=== PATIENT | female | born 1990 | race American Indian/Alaskan Native ===

== ENCOUNTER 2016-11-10 20:54 | Inpatient (IN) | payer OTHER ==
[2016-11-10] MEDS: Lactated Ringers 1,000 ML IV SCH (22:10)
[2016-11-10] MEDS ORDERED: fentaNYL 100 MCG/2 ML SDV ONE (22:26)
[2016-11-10] MEDS ORDERED: Morphine PF 5 MG/10 ML SDV ONE (22:29)
[2016-11-10] MEDS ORDERED: Glycopyrrolate 0.2 MG/ML 2 ML SDV ONE (22:29)
[2016-11-10] MEDS ORDERED: Succinylcholine 200 MG/10 ML MDV ONE (22:30)
[2016-11-10] MEDS ORDERED: Propofol 200 MG/20 ML SDV ONE (22:30)
[2016-11-10] MEDS ORDERED: Citric Acid/Sodium Citrate Solution 30 ML Cup ONE (22:30)
[2016-11-10] MEDS ORDERED: Oxytocin/Normal Saline 60 UNIT/1,000 ML BAG ONE (22:32)
[2016-11-10] MEDS ORDERED: Phenylephrine 1% 10 MG/ML SDV ONE ×2 (22:33→22:34)
[2016-11-10] MEDS ORDERED: Sodium Chloride 0.9% 10 ML Syringe FLUSH PRN (22:34)
[2016-11-10] MEDS ORDERED: ceFAZolin 2 GM in Premix Bag 1 BAG IV ONE (22:34)
--- NOTE | 2016-11-10 22:43 | PCM.LDHP ---
L&D History of Present Illness - General Date of Service: 11/10/16 Admit Problem/Dx: Patient Status Order with Admit Dx/Problem 11/10/16 22:34 Patient Status [ADT] Routine Admission Diagnosis/Problem Admission Diagnosis/Problem care Source of Information: Patient - History of Present Illness Introduction:: 26-year-old at 38w6d gestation presented to the OB floor. Shortly after shopping at [employer], she went to the bathroom and noticed blood and mucus in the toilet. She became worried so presented to the OB floor. Amnisure was negative , and patient is not tania; however, she has had intermittent blood pressures with systolics in the 140s and diastolic in the 90s. As she is 39 weeks tomorrow and has a history of eclampsia, the decision was made to proceed with section. Baby has been active. No headaches. - Related Data Allergies/Adverse Reactions: Allergies Allergy/AdvReac Type Severity Reaction Status Date / Time No Known Allergies Allergy Verified 11/10/16 21:18 Home Medications: Home Meds PNV95/Ferrous Fumarate/FA [ Vitamin Tablet] 1 tab PO DAILY 11/10/16 [ History] Past Medical History Cardiovascular History: Reports: Other (see below) Other Cardiovascular History: elevated blood pressures/eclampsia with first CIVIL DESIGNER History: Reports: , Other (see below) Other OB/BYN History: BV, chlamydia Neurological History: Reports: Seizure, Other (see below) Other Neuro History: eclampsia with first Endocrine/Metabolic History: Reports: Diabetes, gestational, Obesity/BMI 30+ Hematologic History: Reports: Blood transfusion(s) - Past Surgical History Female Surgical History: Reports: section H&P Review of Systems - Review of Systems: Review Of Systems: See Below General: Reports: no symptoms HEENT: Reports: no symptoms Pulmonary: Reports: No Symptoms Cardiovascular: Reports: no symptoms, blood pressure problem Gastrointestinal: Reports: No symptoms Genitourinary: Reports: no symptoms Musculoskeletal: Reports: no symptoms Skin: Reports: no symptoms L&D Exam - Exam Exam: See Below - OB Specific movement: active heart tones: present heart tones per min: 140 Heart Rate (FHR) Variability: Moderate (6-25 bmp) Presentation: Vertex - Exam General: alert, oriented HEENT: Mucosa moist & pink, Posterior pharynx clear Lungs: Clear to auscultation, Normal respiratory effort Cardiovascular: regular rate, regular rhythm. No: systolic murmur, diastolic murmur Extremities: No: edema Skin: warm, dry, intact Psychiatric: alert - Patient Data Lab Results last 24 hrs: Laboratory Results - last 24 hr 11/10/16 11/10/16 Range/Units 21:25 22:09 POC Glucose 121 H (70-105) mg/dl Membrane Rupture Negative (NEG) - Problem List (1) History of delivery SNOMED Code(s): 462011562 ICD Code: Z98.891 - HISTORY OF UTERINE SCAR FROM PREVIOUS SURGERY Status: Acute Current Visit: Yes (2) Rubella non-immune status, antepartum SNOMED Code(s): 089512049 ICD Code: O99.89 - OTH DISEASES AND CONDITIONS COMPL PREG/CHLDBRTH; Z28.3 - UNDERIMMUNIZATION STATUS Status: Acute Current Visit: Yes (3) GBS (group B Streptococcus carrier), +RV culture, currently SNOMED Code(s): 16911273, 845033897 ICD Code: O99.820 - STREPTOCOCCUS B CARRIER STATE COMPLICATING Status: Acute Current Visit: Yes (4) Gestational diabetes mellitus SNOMED Code(s): 48479957 ICD Code: O24.419 - GESTATIONAL DIABETES MELLITUS IN , UNSP CONTROL Status: Acute Current Visit: Yes Problem List Initiated/Reviewed/Updated: Yes Orders Last 24hrs: Active Orders 24 hr Category Date Time Status Patient Status [ADT] Routine ADT 11/10/16 22:34 Ordered Notify Provider Vital Signs OB [RC] ASDIRECTED Care 11/10/16 22:34 Ordered Peripheral IV Care [RC] . DIRECTED Care 11/10/16 22:35 Ordered Procedure Site Prep Instruct [RC] ASDIRECTED Care 11/10/16 22:34 Ordered RT Incentive Spirometry [RC] ASDIRECTED Care 11/10/16 22:34 Ordered Vital Signs [RC] PER UNIT ROUTINE Care 11/10/16 22:34 Ordered CBC WITH AUTO DIFF [HEME] Routine Lab 11/10/16 22:34 Ordered TYPE AND SCREEN [BBK] Routine Lab 11/10/16 22:34 Ordered Sodium Chloride 0.9% [Saline Flush] Med 11/10/16 22:34 Ordered 10 ml FLUSH ASDIRECTED PRN ceFAZolin [Ancef] 2 gm Med 11/10/16 22:34 Ordered Premix Bag 1 bag IV ONETIME Peripheral IV Insertion Adult [OM.PC] Routine Oth 11/10/16 22:34 Ordered Schedule Procedure [COMM] Per Unit Routine Oth 11/10/16 22:34 Ordered Resuscitation Status Routine Resus Stat 11/10/16 22:34 Ordered Medication Orders Cefazolin Sodium/Dextrose 2 gm (/ Premix) 50 mls @ 100 mls/hr IV ONETIME ONE Stop: 11/10/16 23:03 Sodium Chloride (Saline Flush) 10 ml FLUSH ASDIRECTED PRN PRN Reason: Keep Vein Open Assessment/Plan Comment:: 1. Proceed with delivery 2. 2 grams Ancef 3. Plans to breastfeed 4. Risks and benefits, including but not limited to bleeding, infection and injury to surrounding structures. Consents were signed. Nimisha Chavira MD
[2016-11-11] MEDS ORDERED: Oxytocin/Normal Saline 30 UNIT/500 ML BAG IV SCH (00:19)
[2016-11-11] MEDS ORDERED: Simethicone 80 MG Tab.Chew PO PRN (00:40)
[2016-11-11] MEDS ORDERED: Acetaminophen/oxyCODONE 325-5 MG Tab PO PRN (00:40)
[2016-11-11] MEDS ORDERED: Ondansetron 4 MG/2 ML SDV IV PRN (00:40)
[2016-11-11] MEDS ORDERED: Naloxone 2 MG/2 ML Syringe IVPUSH PRN (00:40)
[2016-11-11] MEDS ORDERED: Acetaminophen 325 MG Tab PO PRN (00:40)
[2016-11-11] MEDS ORDERED: Misoprostol 400 MCG (4 X 100 MCG TAB) RECTAL PRN (00:40)
[2016-11-11] MEDS ORDERED: Carboprost Tromethamine 250 MCG/1 ML Amp IM ONE (00:40)
[2016-11-11] MEDS ORDERED: ePHEDrine 50 MG/ML SDV IVPUSH PRN (00:40)
[2016-11-11] MEDS ORDERED: Methylergonovine 0.2 MG/1 ML Amp IM PRN (00:40)
[2016-11-11] MEDS ORDERED: diphenhydrAMINE 50 MG/ML SDV IVPUSH PRN (00:40)
--- NOTE | 2016-11-11 00:40 | PCM.PRNOTE ---
- Free Text/Narrative Note: Section Operative Report Date of Surgery: 11/10/16 Surgeon: Nimisha Chavira MD Heat Treater: MD Dudley Robles [facility] Pre-Operative Diagnosis: Gestational HTN History previous section Post-Operative Diagnosis: Same Procedure Performed: Repeat low transverse section Anesthesia: General EBL: 600 mL IVF: 2300 mL Drains: Solano catheter with 300 mL of urine output Specimens: NONE Complications: None apparent Findings: Normal uterus, tubes, and ovaries. Indication and Consent: Patient presented with concern for ruptured membranes. Admission was negative; however, patient was found to have elevated blood pressures with systolic ranging in the 140s and diastolic in the high 80s to low 90s. Patient has a history of eclamptic seizure with her first . Because of her current blood pressures and history, the decision was made to proceed with repeat section at 38 weeks 6 days gestation. The patient understood that the risks of section include, but are not limited to, visceral or vascular injury, infection, blood loss and need for blood transfusion, prolonged hospitalization, and reoperation. The patient stated understanding and desired to proceed. All questions were answered. Procedure in Detail: The patient was taken to the operating room. Solano catheter and pneumoboots were placed. She was then prepped and draped in routine fashion in dorsal supine position with a left matamoros tilt. Two grams of cefazolin (Ancef) were given for infection prophylaxis. General anesthesia was administered. A Pfannenstiel skin incision was made with a scalpel and carried down to the fascia. The fascia was incised and extended laterally. The rectus musculature was in the midline down to the level of the pubic symphysis. The peritoneum was found to be free of adherent bowel or bladder tissue and entered bluntly. The peritoneal opening was then extended superiorly and inferiorly to the bladder reflection with good visualization of the bladder. The Mal retractor was placed. Brief intraabdominal survey revealed scant, clear peritoneal fluid and thinned-out lower uterine segment. The bladder blade was positioned to keep the bladder out of the operative field. The lower uterine segment was incised with a scalpel. The amniotic sac was ruptured with an Allis clamp and clear fluid was noted. The uterine incision was extended bluntly with lateral and upward traction. The fetus was in vert position. The head was elevated out of the maternal pelvis with special attention paid to avoid using the uterine incision as a fulcrum. Gentle fundal pressure was applied once the head was brought into the incision. The infant was delivered with minimal difficulty. Bulb suctioning of the 's nose and mouth was performed on the operative field. The cord was clamped and cut in standard fashion, and the infant was handed over to the awaiting nursery staff. IV oxytocin was initiated to facilitate uterine contractions. The placenta was delivered intact with manual message of the uterine fundus along with gentle cord traction. The uterus was then exteriorized. The inside of the uterus was gently wiped with a lap sponge to assure complete removal of remaining products of conception. The uterine incision was closed with 0 - Vicryl suture in a running locked fashion. A second imbricating layer of 0- Vicryl was also placed. The incision was inspected and hemostasis achieved. The ovaries and tubes were visualized and found to be normal. The uterus, tubes, and ovaries were returned to the abdominal cavity. The blood clots and fluid were wiped out of the abdomen and pelvis with moist laparotomy sponges. The uterine incision was re-inspected along with all other incised surfaces and good hemostasis was confirmed. The Mal retractor was removed. The peritoneus was then closed using 2-0 Vicyrl. The fascia was then closed with 2-0 looped PDS suture with care not to include any underlying abdominal contents. The sub-cutaneous layer was reapproximated with plain suture. The skin was closed with scott. Dressing was applied. Sponge and instrument counts were reported as correct times two. Pt tolerated procedure well and was taken to PACU in stable condition. Nimisha Chavira MD
--- NOTE | 2016-11-11 00:40 | PCM.DEL ---
L & D Note - General Info Date of Service: 11/18/16 - Delivery Note Delivery Outcome: Livebirth Infant Delivery Method: Repeat Delivery Mode: Vacuum Extraction Presentation: Vertex Amniotic Fluid Description: Clear Placenta: intact, spontaneous [place]: stimulated, warmed Delivery Comments (Free Text/Narrative):: 26-year-old presented to labor and delivery and was found to have elevated blood pressures. She underwent repeat section. Please see operative report for further details. Nimisha Chavira MD - General Info Date of Service: 11/10/16 - Patient Data Lab Results last 24 hrs: Laboratory Results - last 24 hr 11/10/16 11/10/16 11/10/16 Range/Units 21:25 22:09 22:12 WBC 6.1 (5.0-10.0) 10^3/uL RBC 5.92 H (4.2-5.4) 10^6/uL Hgb 15.4 (12.0-16.0) g/dL Hct 47.2 H (37.0-47.0) % MCV 79.7 L (80-100) fL MCH 26.0 L (27.0-34.0) pg MCHC 32.6 L (33.0-35.0) g/dL Plt Count 177 (150-450) 10^3/uL Neut % (Auto) 68.6 (42.2-75.2) % Lymph % (Auto) 25.3 (20.5-50.1) % Banks % (Auto) 5.4 (2-8) % Eos % (Auto) 0.5 L (1.0-3.0) % Baso % (Auto) 0.2 (0.0-1.0) % POC Glucose 121 H (70-105) mg/dl Membrane Rupture Negative (NEG) Blood Type Gel Antibody Screen 11/10/16 Range/Units 22:12 WBC (5.0-10.0) 10^3/uL RBC (4.2-5.4) 10^6/uL Hgb (12.0-16.0) g/dL Hct (37.0-47.0) % MCV (80-100) fL MCH (27.0-34.0) pg MCHC (33.0-35.0) g/dL Plt Count (150-450) 10^3/uL Neut % (Auto) (42.2-75.2) % Lymph % (Auto) (20.5-50.1) % Banks % (Auto) (2-8) % Eos % (Auto) (1.0-3.0) % Baso % (Auto) (0.0-1.0) % POC Glucose (70-105) mg/dl Membrane Rupture (NEG) Blood Type A POSITIVE Gel Antibody Screen Negative Med Orders - Current: Current Medications Sodium Chloride (Saline Flush) 10 ml FLUSH ASDIRECTED PRN PRN Reason: Keep Vein Open Discontinued Medications Citric Acid/Sodium Citrate (Bicitra Solution) Confirm Administered Dose 30 ml .ROUTE .STK-MED ONE Stop: 11/10/16 22:31 Fentanyl (Sublimaze) Confirm Administered Dose 100 mcg .ROUTE .STK-MED ONE Stop: 11/10/16 22:27 Glycopyrrolate (Glycopyrrolate) Confirm Administered Dose 0.8 mg .ROUTE .STK- MED ONE Stop: 11/10/16 22:30 Oxytocin/Sodium Chloride (Pitocin In Ns 30 Unit/500 Ml) Confirm Administered Dose 60 unit in 1,000 mls @ as directed .ROUTE .STK-MED ONE Stop: 11/10/16 22:33 Cefazolin Sodium/Dextrose 2 gm (/ Premix) 50 mls @ 100 mls/hr IV ONETIME ONE Stop: 11/10/16 23:03 Last Admin: 11/10/16 22:56 Dose: 100 mls/hr Morphine Sulfate (Duramorph Pf) Confirm Administered Dose 5 mg .ROUTE .STK-MED ONE Stop: 11/10/16 22:30 Phenylephrine HCl (Jericho-Synephrine) Confirm Administered Dose 10 mg .ROUTE .STK- MED ONE Stop: 11/10/16 22:34 Phenylephrine HCl (Jericho-Synephrine) Confirm Administered Dose 10 mg .ROUTE .STK- MED ONE Stop: 11/10/16 22:35 Propofol (Diprivan 20 Ml) Confirm Administered Dose 200 mg .ROUTE .STK-MED ONE Stop: 11/10/16 22:31 Succinylcholine Chloride (Quelicin) Confirm Administered Dose 200 mg .ROUTE .STK -MED ONE Stop: 11/10/16 22:31 - Problem List & Annotations (1) History of delivery SNOMED Code(s): 610241274 Code(s): Z98.891 - HISTORY OF UTERINE SCAR FROM PREVIOUS SURGERY Status: Acute Current Visit: Yes (2) Rubella non-immune status, antepartum SNOMED Code(s): 966881749 Code(s): O99.89 - OTH DISEASES AND CONDITIONS COMPL PREG/CHLDBRTH; Z28.3 - UNDERIMMUNIZATION STATUS Status: Acute Current Visit: Yes (3) GBS (group B Streptococcus carrier), +RV culture, currently SNOMED Code(s): 97500597, 376323017 Code(s): O99.820 - STREPTOCOCCUS B CARRIER STATE COMPLICATING Status: Acute Current Visit: Yes (4) Gestational diabetes mellitus SNOMED Code(s): 22275223 Code(s): O24.419 - GESTATIONAL DIABETES MELLITUS IN , UNSP CONTROL Status: Acute Current Visit: Yes - Problem List Review Problem List Initiated/Reviewed/Updated: Yes - My Orders Last 24 Hours: My Active Orders 11/10/16 22:34 Patient Status [ADT] Routine Notify Provider Vital Signs OB [RC] ASDIRECTED Procedure Site Prep Instruct [RC] ASDIRECTED RT Incentive Spirometry [RC] ASDIRECTED Vital Signs [RC] PER UNIT ROUTINE Sodium Chloride 0.9% [Saline Flush] 10 ml FLUSH ASDIRECTED PRN Peripheral IV Insertion Adult [OM.PC] Routine Schedule Procedure [COMM] Per Unit Routine Resuscitation Status Routine 11/10/16 22:35 Peripheral IV Care [RC] . DIRECTED - Assessment Assessment:: 26-year-old, now , status post repeat section at 37 weeks 6 days for gestational hypertension - Plan Plan:: 1. Initiate routine orders 2. Mother plans to breast-feed. 3. Anticipate discharge 11/13/16 Nimisha Chavira MD
[2016-11-11] MEDS ORDERED: Lactated Ringers 1,000 ML IV SCH (00:45)
[2016-11-11] MEDS ORDERED: Ketorolac 30 MG/ML SDV IVPUSH SCH ×2 (01:00→07:00)
[2016-11-11] MEDS: Lactated Ringers 1,000 ML IV SCH ×3 (02:46→10:43)
[2016-11-11] MEDS: Ketorolac 30 MG/ML SDV IVPUSH SCH ×2 (07:11→13:04)
[2016-11-11] MEDS: Docusate Sodium 100 MG Cap PO PRN ×2 (10:14→22:10)
[2016-11-11] MEDS ORDERED: Morphine PF 5 MG/10 ML SDV ONE (14:00)
[2016-11-11] MEDS ORDERED: Ketorolac 30 MG/ML SDV IVPUSH ONE (14:00)
[2016-11-11] MEDS ORDERED: fentaNYL 100 MCG/2 ML SDV ONE (14:00)
[2016-11-11] MEDS ORDERED: Ondansetron 4 MG/2 ML SDV IV ONE (14:00)
[2016-11-11] MEDS ORDERED: Oxytocin/Normal Saline 30 UNIT/500 ML BAG IV ONE (16:25)
[2016-11-11] MEDS: Ibuprofen 800 MG Tab PO PRN (21:08)
[2016-11-11] MEDS: Acetaminophen/oxyCODONE 325-5 MG Tab PO PRN (22:11)
[2016-11-11] MEDS ORDERED: Ibuprofen 800 MG Tab PO PRN (23:00)
[2016-11-12] MEDS ORDERED: Ibuprofen 800 MG Tab PO PRN (03:00)
[2016-11-12] MEDS: Acetaminophen/oxyCODONE 325-5 MG Tab PO PRN ×2 (04:15→10:15)
--- NOTE | 2016-11-12 07:31 | PCM.PNPP ---
- General Info Date of Service: 11/12/16 (POD # 1 S/P Repeat section) Functional Status: Reports: pain controlled, tolerating diet, ambulating, urinating - Review of Systems General: Reports: No Symptoms HEENT: Reports: no symptoms Pulmonary: Reports: no symptoms Cardiovascular: Reports: No Symptoms Gastrointestinal: Reports: No symptoms Genitourinary: Reports: no symptoms Musculoskeletal: Reports: no symptoms Skin: Reports: no symptoms Neurological: Reports: No Symptoms Psychiatric: Reports: no symptoms - General Info Date of Service: 11/12/16 (POD # 1 S/P Section) - Patient Data Vital Signs - most recent: Last Vital Signs Temp 97.2 F 11/12/16 00:00 Pulse 73 11/12/16 04:00 Resp 20 11/12/16 04:00 BP 122/72 11/12/16 04:00 Pulse Ox 95 11/12/16 04:00 Weight - most recent: 278 lb I&O - last 24 hours: Intake & Output 11/11/16 11/12/16 11/12/16 22:59 06:59 14:59 Intake Total 2000 450 Output Total 500 2500 Balance 1500 -2050 Lab Results - last 24 hrs: Laboratory Results - last 24 hr 11/12/16 Range/Units 07:10 WBC 9.3 (5.0-10.0) 10^3/uL RBC 3.79 L (4.2-5.4) 10^6/uL Hgb 9.9 L (12.0-16.0) g/dL Hct 31.6 L (37.0-47.0) % MCV 83.4 (80-100) fL MCH 26.1 L (27.0-34.0) pg MCHC 31.3 L (33.0-35.0) g/dL Plt Count 249 (150-450) 10^3/uL Med Orders - Current: Current Medications Acetaminophen (Tylenol) 650 mg PO Q6H PRN PRN Reason: mild pain or fever Diphenhydramine HCl (Benadryl) 25 mg IVPUSH Q6H PRN PRN Reason: Itching or Nausea Docusate Sodium (Colace) 100 mg PO Q12H PRN PRN Reason: Constipation Last Admin: 11/11/16 22:10 Dose: 100 mg Ephedrine Sulfate (Ephedrine Sulfate) 5 mg IVPUSH SEECOMMENT PRN PRN Reason: Other Lactated Ringer's (Ringers, Lactated) 1,000 mls @ 125 mls/hr IV ASDIRECTED [facility] Last Admin: 11/11/16 10:43 Dose: 125 mls/hr Oxytocin/Sodium Chloride (Pitocin In Ns 30 Unit/500 Ml) 30 unit in 500 mls @ 125 mls/hr IV TITRATE COURTNEY; 125 MUNITS/MIN PRN Reason: Protocol Last Titration: 11/11/16 02:50 Dose: 0 munits/min, 0 mls/hr Lactated Ringer's (Ringers, Lactated) 1,000 mls @ 125 mls/hr IV ASDIRECTED [facility] Last Admin: 11/11/16 02:46 Dose: 125 mls/hr Ibuprofen (Motrin) 800 mg PO Q8H PRN PRN Reason: mild pain or fever Last Admin: 11/11/16 21:08 Dose: 800 mg Methylergonovine Maleate (Methergine) 0.2 mg IM ONETIME PRN PRN Reason: Excessive Vaginal Bleeding Misoprostol (Cytotec) 800 mcg RECTAL ASDIRECTED PRN PRN Reason: Bleeding Naloxone HCl (Narcan) 0.1 mg IVPUSH SEECOMMENT PRN PRN Reason: Respiratory Depression Ondansetron HCl (Zofran) 4 mg IV Q4H PRN PRN Reason: Nausea/Vomiting Oxycodone/Acetaminophen (Percocet 325-5 Mg) 1 tab PO Q4H PRN PRN Reason: Pain (moderate 4-6) Last Admin: 11/12/16 04:15 Dose: 1 tab Oxycodone/Acetaminophen (Percocet 325-5 Mg) 2 tab PO Q4H PRN PRN Reason: Pain (moderate 4-6) Simethicone (Simethicone) 80 mg PO Q4H PRN PRN Reason: Gas Last Admin: 11/11/16 10:13 Dose: 80 mg Sodium Chloride (Saline Flush) 10 ml FLUSH ASDIRECTED PRN PRN Reason: Keep Vein Open Discontinued Medications Carboprost Tromethamine (Hemabate Ds) 250 mcg IM ONETIME ONE Stop: 11/11/16 00:41 Last Admin: 11/11/16 06:36 Dose: Not Given Citric Acid/Sodium Citrate (Bicitra Solution) Confirm Administered Dose 30 ml .ROUTE .STK-MED ONE Stop: 11/10/16 22:31 Last Admin: 11/10/16 22:59 Dose: 30 ml Fentanyl (Sublimaze) Confirm Administered Dose 100 mcg .ROUTE .STK-MED ONE Stop: 11/10/16 22:27 Fentanyl (Sublimaze) 10 mcg .XX .STK-MED ONE Stop: 11/11/16 14:01 Glycopyrrolate (Glycopyrrolate) Confirm Administered Dose 0.8 mg .ROUTE .STK- MED ONE Stop: 11/10/16 22:30 Oxytocin/Sodium Chloride (Pitocin In Ns 30 Unit/500 Ml) Confirm Administered Dose 60 unit in 1,000 mls @ as directed .ROUTE .STK-MED ONE Stop: 11/10/16 22:33 Cefazolin Sodium/Dextrose 2 gm (/ Premix) 50 mls @ 100 mls/hr IV ONETIME ONE Stop: 11/10/16 23:03 Last Admin: 11/10/16 22:56 Dose: 100 mls/hr Lactated Ringer's (Ringers, Lactated) 1,000 mls @ 125 mls/hr IV ASDIRECTED [facility] Last Admin: 11/11/16 01:04 Dose: 150 mls/hr Oxytocin/Sodium Chloride (Pitocin In Ns 30 Unit/500 Ml) 30 unit in 500 mls @ as directed IV .STK-MED ONE Stop: 11/11/16 16:26 Ibuprofen (Motrin) 800 mg PO Q8H PRN PRN Reason: mild pain or fever Ibuprofen (Motrin) 800 mg PO Q8H PRN PRN Reason: mild pain or fever Ketorolac Tromethamine (Toradol) 15 mg IVPUSH Q6H [facility] Stop: 11/11/16 13:01 Last Admin: 11/11/16 07:55 Dose: Not Given Ketorolac Tromethamine (Toradol) 15 mg IVPUSH Q6H [facility] Stop: 11/11/16 13:01 Ketorolac Tromethamine (Toradol) 15 mg IVPUSH Q6H [facility] Stop: 11/11/16 19:01 Last Admin: 11/11/16 13:04 Dose: 15 mg Ketorolac Tromethamine (Toradol) 30 mg IVPUSH .STK-MED ONE Stop: 11/11/16 14:01 Morphine Sulfate (Duramorph Pf) Confirm Administered Dose 5 mg .ROUTE .STK-MED ONE Stop: 11/10/16 22:30 Morphine Sulfate (Duramorph Pf) 0.1 mg .XX .STK-MED ONE Stop: 11/11/16 14:01 Ondansetron HCl (Zofran) 4 mg IV .STK-MED ONE Stop: 11/11/16 14:01 Phenylephrine HCl (Jericho-Synephrine) Confirm Administered Dose 10 mg .ROUTE .STK- MED ONE Stop: 11/10/16 22:34 Phenylephrine HCl (Jericho-Synephrine) Confirm Administered Dose 10 mg .ROUTE .STK- MED ONE Stop: 11/10/16 22:35 Propofol (Diprivan 20 Ml) Confirm Administered Dose 200 mg .ROUTE .STK-MED ONE Stop: 11/10/16 22:31 Succinylcholine Chloride (Quelicin) Confirm Administered Dose 200 mg .ROUTE .STK -MED ONE Stop: 11/10/16 22:31 - Recovery Exam Fundal Tone: Firm Fundal Level: 1 Fingerbreadths Below Umbilicus Fundal Placement: Midline Lochia Amount: Small Lochia Color: Rubra/Red Episiotomy/Laceration: None Bladder Status: Voiding - Exam General: alert, oriented, cooperative, no acute distress HEENT: Pupils equal, Pupils reactive, EOMI, Mucous membr. moist/pink Neck: supple, no thyromegaly Lungs: Clear to auscultation, Normal respiratory effort Cardiovascular: Regular Rate, Regular Rhythm, No Murmurs Abdomen: bowel sounds present, soft, no tenderness, no distension, other ( Incision- Clean dry intact) Extremities: no edema, normal pulses, no tenderness/swelling Skin: warm, dry, intact Wound/Incisions: healing well, dressing dry and intact, no drainage Neurological: no new focal deficit, normal gait, normal speech, normal tone, strength equal bilateral Psy/Mental Status: alert, normal affect, normal mood - Problem List Review Problem List Initiated/Reviewed/Updated: Yes - My Orders Last 24 Hours: My Active Orders 11/12/16 06:54 Ready for Discharge [RC] PER UNIT ROUTINE - Assessment Assessment:: POD # 1 S/P Repeat section, doing well - Plan Plan:: Discharge to home per patient request to be at home with Follow-up with Dr. Chavira next week for wound check Motrin 800 mg q 6-8 hours po prn pain Percocet 325/5 1 tablet every 4-6 hours po prn pain All questions answered
[2016-11-12 08:04] VITALS: BP 118/66
[2016-11-12] MEDS ORDERED: Measles, Mumps & Rubella Vaccine 0.5 ML SDV SUBCUT ONE (08:09)
[2016-11-12] MEDS: Ibuprofen 800 MG Tab PO PRN (10:14)
[2016-11-12] MEDS: Docusate Sodium 100 MG Cap PO PRN (10:16)
--- NOTE | 2016-11-13 03:41 | DISCH ---
INDICATION FOR ADMISSION: Ms. Huggins is a 26-year-old, 3, para 2-0-0-2 female at 30-6/7 weeks' gestation, who reported to Labor and Delivery with questionable rupture of membranes. She is found not to be ruptured. She has had previous section in the past and was having a repeat section. On admission, she did have history of gestational hypertension and gestational diabetes diet controlled, and because of her previous eclampsia history, they decided to keep her and repeat a section, which she did and tolerated quite well. There are no complications of the procedure. She went from the operating room to recovery and then to the OB floor. She tolerated the rest of her hospital stay quite well. She was afebrile. Vital signs are stable. She tolerated her diet well and ambulated quite well. Her was transferred to [facility] and they are releasing the on postop day #1 of the patient and she wanted to go home to be with her baby. She is ambulating well, tolerating her diet well. Besides the incisional pain, she is doing wonderful. Her blood pressures have been stable. She denies any nausea, vomiting, or diarrhea. No fever or chills. She was discharged to home on postop day #1. LABORATORY AND DIAGNOSTIC STUDIES: On 11/10/2016, WBC 6.1, hemoglobin 15.4, hematocrit 47.2, platelet count 177,000. Glucose 121. DISCHARGE INSTRUCTIONS: 1. Discharged to home. 2. Follow up with Dr. Chavira next week for wound check. 3. Follow up for 6-week visit. 4. No douching, tampons, intercourse for 6 weeks. 5. Discharge instructions including activity, followup, medications, diet, and wound care were discussed with the patient. She understands these and is willing to comply with these. 6. Ibuprofen 800 mg one tablet every 6-8 hours p.r.n. for pain. 7. Percocet 1-2 tabs every 4-6 hours p.r.n. for pain. DISCHARGE DIAGNOSES: 1. A 38-6/7 weeks' intrauterine . 2. History of gestational hypertension. 3. History of gestational diabetes, diet controlled. 4. Previous section. 5. Rubella nonimmune. 6. Previous history of eclampsia of the previous . 7. Group B Streptococcus vaginal culture positive. 8. Repeat low transverse section via Pfannenstiel skin incision with delivery of a 7 pounds, 14 ounce female infant, 19 inches long with scores of 8 at 1 minute, 8 at 5 minutes, which had to be transferred to [facility] in [place]. 9. Spinal anesthesia with Duramorph. [facility] /[id number]
--- NOTE | 2016-12-05 15:29 | PCM.POSTAN ---
POST ANESTHESIA ASSESSMENT - MENTAL STATUS Mental Status: alert, oriented - VITAL SIGNS Pulse Rate: 69 SaO2: 95 Resp Rate: 16 Blood Pressure: 117/59 Temperature: 36.6 C - RESPIRATORY Respiratory Status: respiratory rate WNL, airway patent, O2 saturation stable - CARDIOVASCULAR CV Status: pulse rate WNL, blood pressure stable - GASTROINTESTINAL GI Status: no symptoms - PAIN Free Text/Narrative:: pt without c/o pain. States 0/10 - POST OP HYDRATION Hydration Status: adequate & stable - OBSERVATIONS Free Text/Narrative:: Without c/o. Pt states no LBP, full motor and sensory return, no c/o PDPH, no c /o PONV. No post anesthesia complications noted.
== END 2016-11-12 13:05 | disposition home or self-care (01) | DRG 765 ==
LOC: DL.OBCHECK 20:54 → DL.OB 22:08 → OBSVTOIN 22:34 → DL.OB 22:34
PROVIDERS: ADMIT Family Medicine; ATTEND Family Medicine
PROC: 10D00Z1 Extraction of Products of Conception, Low, Open Approach (ICD-10-PCS; principal; 2016-11-10)
DX: O24.420 Gestational diabetes mellitus in childbirth, diet controlled (principal); O98.82 Other maternal infectious and parasitic diseases complicating childbirth; Z68.41 Body mass index [BMI] 40.0-44.9, adult; O13.4 Gestational [pregnancy-induced] hypertension without significant proteinuria, complicating childbirth; O34.211 Maternal care for low transverse scar from previous cesarean delivery; O99.214 Obesity complicating childbirth; E66.9 Obesity, unspecified; B95.1 Streptococcus, group B, as the cause of diseases classified elsewhere; Z37.0 Single live birth; Z87.891 Personal history of nicotine dependence; Z3A.38 38 weeks gestation of pregnancy
CPT/HCPCS: 36415; 82962; 84112; 85025; 85027; 86850; 86900; 86901; 90707; 94010; A9270-GY; J0690; J1885; J2274; J2405; J2590; J3010; J7120

== ENCOUNTER 2021-02-03 18:12 | Emergency (ER) | payer OTHER ==
[2021-02-03] MEDS ORDERED: Iopamidol 612 MG/ML 100 ML Bottle IVPUSH ONE (20:25)
[2021-02-03] MEDS ORDERED: Sodium Chloride 0.9% 1,000 ML IV ONE (20:29)
[2021-02-03] MEDS ORDERED: cefTRIAXone 1 GM in Sodium Chloride 0.9% 50 ML IV ONE (20:30)
[2021-02-03 21:11] LABS: ANION GAP 16.6 mEq/L (7-13); CHLORIDE,CL 100 mmol/L (98-107); SODIUM,NA 136 mmol/L (136-145)
--- NOTE | 2021-02-03 21:48 | CT ---
PROCEDURE INFORMATION: Exam: CT Abdomen And Pelvis With Contrast Exam date and time: 02/03/2021 8:52 PM Age: 30 years old Clinical indication: Abdominal pain; Tenderness; Right lower quadrant (rlq); Additional info: Rlq pain TECHNIQUE: Imaging protocol: Computed tomography of the abdomen and pelvis with contrast. Radiation optimization: All CT scans at this facility use at least one of these dose optimization techniques: automated exposure control; mA and/or kV adjustment per patient size (includes targeted exams where dose is matched to clinical indication); or iterative reconstruction. Contrast material: ISOVUE 300; Contrast volume: 100 ml; Contrast route: INTRAVENOUS (IV); COMPARISON: No relevant prior studies available. FINDINGS: Liver: Hepatomegaly with hepatic steatosis Gallbladder and bile ducts: Normal. No calcified stones. No ductal dilation. Pancreas: Normal. No ductal dilation. Spleen: Normal. No splenomegaly. Adrenal glands: Normal. No mass. Kidneys and ureters: Normal. No hydronephrosis. Stomach and bowel: Unremarkable. No obstruction. No mucosal thickening. Appendix: No evidence of appendicitis. Intraperitoneal space: Unremarkable. No free air. No significant fluid collection. Vasculature: Unremarkable. No abdominal aortic aneurysm. Lymph nodes: Unremarkable. No enlarged lymph nodes. Urinary bladder: Unremarkable as visualized. Reproductive: IUD in place. Bones/joints: Unremarkable. No acute fracture. Soft tissues: Unremarkable. IMPRESSION: Hepatomegaly with hepatic steatosis
[2021-02-03 22:03] VITALS: BP 119/53; PULSE 115
--- NOTE | 2021-02-03 22:03 | EDM.PDOC ---
ED HPI GENERAL MEDICAL PROBLEM - General Chief Complaint: Abdominal Pain Stated Complaint: LOWER STOMACH PAIN Time Seen by Provider: 02/03/21 19:20 Source of Information: Reports: Patient, RN History Limitations: Reports: No Limitations - History of Present Illness INITIAL COMMENTS - FREE TEXT/NARRATIVE: RLQ pain since last night , worse ti coughing or moving. No fever, question chills. No nausea or vomiting no back pain. Denies urinary sx. Last BM midnight. Right Lower Abdomen Pain Score (Numeric/FACES): 7 - Related Data Allergies Allergy/AdvReac Type Severity Reaction Status Date / Time No Known Allergies Allergy Verified 02/03/21 18:43 Home Meds: Home Meds . 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, chlamydia Musculoskeletal History: Reports: None Neurological History: Reports: Seizure, Other (See Below) Other Neuro History: eclampsia with first Psychiatric History: Reports: None Endocrine/Metabolic History: Reports: Diabetes, Gestational, Obesity/BMI 30+ Hematologic History: Reports: Blood Transfusion(s) Immunologic History: Reports: None Oncologic (Cancer) History: Reports: None Dermatologic History: Reports: None - Infectious Disease History Infectious Disease History: Reports: Chicken Pox - Past Surgical History Head Surgeries/Procedures: Reports: None Female Surgical History: Reports: Section Social & Family History - Tobacco Use Tobacco Use Status *Q: Current Every Day Tobacco User Years of Tobacco use: 6 Packs/Tins Daily: 0.5 Second Hand Smoke Exposure: No - Caffeine Use Caffeine Use: Reports: Coffee - Recreational Drug Use Recreational Drug Use: No ED ROS GENERAL - Review of Systems Review Of Systems: Comprehensive ROS is negative, except as noted in HPI. ED EXAM, GI/ABD - Physical Exam Exam: See Below Exam Limited By: No Limitations General Appearance: Alert, No Apparent Distress Ears: Normal External Exam Nose: Normal Inspection Throat/Mouth: Normal Inspection Head: Atraumatic, Normocephalic Neck: Normal Inspection Respiratory/Chest: No Respiratory Distress, Lungs Clear Cardiovascular: Normal Peripheral Pulses, Regular Rate, Rhythm, Tachycardia GI/Abdominal Exam: Normal Bowel Sounds, Soft, Tender (mild deep right lower) Back Exam: Normal Inspection, Full Range of Motion. No: CVA Tenderness (L), CVA Tenderness (R) Extremities: Normal Inspection Neurological: Alert, Oriented, Normal Cognition Psychiatric: Normal Affect, Normal Mood Skin Exam: Warm, Dry, Intact Course - Vital Signs Last Recorded V/S: Last Vital Signs Temp 101.5 F H 02/03/21 22:12 Pulse 115 H 02/03/21 22:01 Resp 18 02/03/21 22:01 BP 119/53 L 02/03/21 22:01 Pulse Ox 93 L 02/03/21 22:01 - Orders/Labs/Meds Orders: Active Orders 24 hr Category Date Time Status CHLAMYDIA AND GONORRHEA BY TMA Stat Lab 02/03/21 19:35 Received CULTURE URINE [RM] Stat Lab 02/03/21 19:31 Received Labs: Laboratory Tests 02/03/21 02/03/21 02/03/21 Range/Units 19:31 19:31 19:35 WBC (5.0-10.0) 10^3/uL RBC (4.2-5.4) 10^6/uL Hgb (12.0-16.0) g/dL Hct (37.0-47.0) % MCV (80-100) fL MCH (27.0-34.0) pg MCHC (33.0-35.0) g/dL Plt Count (150-450) 10^3/uL Neut % (Auto) (42.2-75.2) % Lymph % (Auto) (20.5-50.1) % [place] % (Auto) (2-8) % Eos % (Auto) (1.0-3.0) % Baso % (Auto) (0.0-1.0) % Sodium (136-145) mmol/L Potassium (3.5-5.1) mmol/L Chloride (98-107) mmol/L Carbon Dioxide (21-32) mmol/L Anion Gap (7-13) mEq/L BUN (7-18) mg/dL Creatinine (0.55-1.02) mg/dL Est Cr Clr Drug Dosing mL/min Estimated GFR (MDRD) BUN/Creatinine Ratio (No establ ref range) Glucose (70-99) mg/dL Calcium (8.5-10.1) mg/dL Total Bilirubin (0.2-1.0) mg/dL AST (15-37) U/L ALT (14-59) U/L Alkaline Phosphatase (46-116) U/L Total Protein (6.4-8.2) g/dL Albumin (3.4-5.0) g/dL Globulin Albumin/Globulin Ratio Urine Color Dark yellow (YELLOW) Urine Appearance Cloudy (CLEAR) Urine pH 7.0 (5.0-9.0) Ur Specific [place] 1.025 (1.005-1.030) Urine Protein 100 H (NEGATIVE) Urine Glucose (UA) Negative (NEGATIVE) Urine Ketones Negative (NEGATIVE) Urine Occult Blood Trace-intact H (NEGATIVE) Urine Nitrite Positive H (NEGATIVE) Urine Bilirubin Small H (NEGATIVE) Urine Urobilinogen 2.0 H (0.2-1.0) mg/dL Ur Leukocyte Esterase Small H (NEGATIVE) Urine RBC 40-50 H /HPF Urine WBC >100 H (0-5/HPF) /HPF Ur Epithelial Cells Moderate H (NOT SEEN) /HPF Amorphous Sediment Moderate H (NOT SEEN) /HPF Urine Bacteria Few (0-FEW/HPF) /HPF Urine Mucus Few H (NOT SEEN) /LPF Urine HCG, Qual Negative Urine Opiates Screen Negative (NEGATIVE) Ur Oxycodone Screen Negative (NEGATIVE) Urine Methadone Screen Negative (NEGATIVE) Ur Barbiturates Screen Negative (NEGATIVE) U Tricyclic Antidepress Negative (NEGATIVE) Ur Phencyclidine Scrn Negative (NEGATIVE) Ur Amphetamine Screen Negative (NEGATIVE) U Methamphetamines Scrn Negative (NEGATIVE) Urine MDMA Screen Negative (NEGATIVE) U Benzodiazepines Scrn Negative (NEGATIVE) Urine Cocaine Screen Negative (NEGATIVE) U Marijuana (THC) Screen Negative (NEGATIVE) 02/03/21 02/03/21 Range/Units 20:35 20:35 WBC 20.2 H (5.0-10.0) 10^3/uL RBC 4.98 (4.2-5.4) 10^6/uL Hgb 13.9 D (12.0-16.0) g/dL Hct 42.9 (37.0-47.0) % MCV 86.1 (80-100) fL MCH 27.9 (27.0-34.0) pg MCHC 32.4 L (33.0-35.0) g/dL Plt Count 327 D (150-450) 10^3/uL Neut % (Auto) 88.6 H (42.2-75.2) % Lymph % (Auto) 7.1 L (20.5-50.1) % [place] % (Auto) 4.2 (2-8) % Eos % (Auto) 0.0 L (1.0-3.0) % Baso % (Auto) 0.1 (0.0-1.0) % Sodium 136 (136-145) mmol/L Potassium 3.6 (3.5-5.1) mmol/L Chloride 100 (98-107) mmol/L Carbon Dioxide 23 (21-32) mmol/L Anion Gap 16.6 H (7-13) mEq/L BUN 6 L (7-18) mg/dL Creatinine 0.89 (0.55-1.02) mg/dL Est Cr Clr Drug Dosing 85.74 mL/min Estimated GFR (MDRD) > 60 BUN/Creatinine Ratio 6.7 (No establ ref range) Glucose 114 H (70-99) mg/dL Calcium 8.8 (8.5-10.1) mg/dL Total Bilirubin 1.3 H (0.2-1.0) mg/dL AST 37 (15-37) U/L ALT 69 H (14-59) U/L Alkaline Phosphatase 106 (46-116) U/L Total Protein 8.1 (6.4-8.2) g/dL Albumin 3.3 L (3.4-5.0) g/dL Globulin 4.8 Albumin/Globulin Ratio 0.69 Urine Color (YELLOW) Urine Appearance (CLEAR) Urine pH (5.0-9.0) Ur Specific [place] (1.005-1.030) Urine Protein (NEGATIVE) Urine Glucose (UA) (NEGATIVE) Urine Ketones (NEGATIVE) Urine Occult Blood (NEGATIVE) Urine Nitrite (NEGATIVE) Urine Bilirubin (NEGATIVE) Urine Urobilinogen (0.2-1.0) mg/dL Ur Leukocyte Esterase (NEGATIVE) Urine RBC /HPF Urine WBC (0-5/HPF) /HPF Ur Epithelial Cells (NOT SEEN) /HPF Amorphous Sediment (NOT SEEN) /HPF Urine Bacteria (0-FEW/HPF) /HPF Urine Mucus (NOT SEEN) /LPF Urine HCG, Qual Urine Opiates Screen (NEGATIVE) Ur Oxycodone Screen (NEGATIVE) Urine Methadone Screen (NEGATIVE) Ur Barbiturates Screen (NEGATIVE) U Tricyclic Antidepress (NEGATIVE) Ur Phencyclidine Scrn (NEGATIVE) Ur Amphetamine Screen (NEGATIVE) U Methamphetamines Scrn (NEGATIVE) Urine MDMA Screen (NEGATIVE) U Benzodiazepines Scrn (NEGATIVE) Urine Cocaine Screen (NEGATIVE) U Marijuana (THC) Screen (NEGATIVE) Meds: Medications Discontinued Medications Generic Name Dose Route Start Last Admin Trade Name Freq PRN Reason Stop Dose Admin Acetaminophen 1,000 mg 02/03/21 22:08 02/03/21 22:12 Acetaminophen 500 Mg Tab PO 02/03/21 22:09 1,000 mg ONETIME ONE Administration Sodium Chloride 1,000 mls @ 999 mls/hr 02/03/21 20:29 02/03/21 20:49 Normal Saline IV 02/03/21 21:29 999 mls/hr .BOLUS ONE Administration Ceftriaxone Sodium 1 gm/ 50 mls @ 100 mls/hr 02/03/21 20:30 02/03/21 20:49 Sodium Chloride IV 02/03/21 20:59 100 mls/hr ONETIME ONE Administration Iopamidol 100 ml 02/03/21 20:25 02/03/21 20:52 Iopamidol 612 Mg/Ml 100 Ml Bottle IVPUSH 02/03/21 20:26 100 ml ONETIME ONE Administration Departure - Departure Time of Disposition: 21:58 Disposition: Home, Self-Care 01 Condition: Good Clinical Impression: Abdominal pain Qualifiers: Abdominal location: right lower quadrant Qualified Code(s): R10.31 - Right lower quadrant pain UTI (urinary tract infection) Qualifiers: Urinary tract infection type: acute cystitis Hematuria presence: without hematuria Qualified Code(s): N30.00 - Acute cystitis without hematuria - Discharge Information *PRESCRIPTION DRUG MONITORING PROGRAM REVIEWED*: No *COPY OF PRESCRIPTION DRUG MONITORING REPORT IN PATIENT ERICA: No Instructions: Constipation, Adult, [id number], Urinary Tract Infection, Adult, [id number] Forms: ED Department Discharge Additional Instructions: increase fluids, fruit and fiber in diet cipro 500mg one twice daily for 5 days Recheck urine in clinic after completing antibiotic to make sure urinary tract infection is cleared follow up if increased fever chills vomiting Sepsis Event Note (ED) - Evaluation Sepsis Screening Result: No Definite Risk - Focused Exam Vital Signs: Vital Signs Temp Temp Pulse Resp BP Pulse Ox 02/03/21 22:12 101.5 F H 02/03/21 22:01 100.4 F 115 H 18 119/53 L 93 L 02/03/21 18:37 96.6 F L 127 H 16 121/70 98 - My Orders Last 24 Hours: My Active Orders 02/03/21 19:31 CULTURE URINE [RM] Stat 02/03/21 19:35 CHLAMYDIA AND GONORRHEA BY TMA Stat - Assessment/Plan Last 24 Hours: My Active Orders 02/03/21 19:31 CULTURE URINE [RM] Stat 02/03/21 19:35 CHLAMYDIA AND GONORRHEA BY TMA Stat
[2021-02-03] MEDS ORDERED: Acetaminophen 500 MG Tab PO ONE (22:08)
[2021-02-05 14:47] LABS: C.TRACHOMATIS BY TMA Negative (Negative); N.GONORRHOEAE BY TMA Positive (Negative)
== END 2021-02-03 22:18 | disposition home or self-care (01) ==
LOC: DL.ED 18:12
DX: N30.00 Acute cystitis without hematuria (principal); E66.9 Obesity, unspecified; Z68.41 Body mass index [BMI] 40.0-44.9, adult; Z72.0 Tobacco use
CPT/HCPCS: 36415; 74177; 80053; 80305; 81001; 81025; 85025; 87086; 87491; 87591; 96365; 99284; A9270; J0696; J7030; Q9967; 99283